=== PATIENT | female | born 1955 | race Caucasian/White ===

== ENCOUNTER → 2021-11-27 01:35 | Outpatient (CLI) | payer MEDICARE, BC, SELFPAY ==
--- NOTE | 2021-11-27 08:41 | DI.MAMMO_ITS ---
Exam(s) MAMMO SCREENING EXAM: MAMMO SCREENING CLINICAL HISTORY: screening,Z12.39. TECHNIQUE: Bilateral full field digital CC and MLO mammographic images were obtained with 3D tomosyn thesis and utilizing computer aided detection (CAD). COMPARISON: Prior mammograms were reviewed, the most recent being 2015. FINDINGS: There has been no significant change in the appearance and distribution of the fibroglandular tissue. Asymmetric areas of tissue in the lateral aspect of the left breast are unchanged from prior mammogra ms dating back to 2012 and therefore benign. Also asymmetric tissue anteriorly in the right breast i s unchanged from prior studies. There are no new spiculated masses nor malignant appearing microcalcification groups. There is no significant architectural distortion nor skin thickening-retraction. IMPRESSION: No radiographic evidence of malignancy. BI-RADS Category 1 - Negative Breast Density - Category B - Scattered areas of fibroglandular density Breast density Category C or D implies that the patient has dense breast tissue. Dense breast tissue can make it harder to find cancer on a mammogram. Dense breast tissue is also associated with an incr eased risk of breast cancer. This information about the result of the mammogram report was provided to the patient to raise their awareness. Use this report when you speak with the patient about their risks for breast cancer, which includes their family history. At that time, you may recommend additional screening tests (Ultrasoun d or MRI) as these tests may add significant information. A negative radiographic report should not delay biopsy if a dominant or clinically suspicious mass is present. Up to ten percent of cancers are not identified on mammography. A negative report may reinforce clinical impression. Adenosis and dense breasts may obscure an underlying neoplasm. False positive reports average 6 to 10%. Patient will receive a letter notifying them of these results.
== END ==
PROVIDERS: PCP Internal Medicine; Visit Provider Internal Medicine
DX: Z12.31 Encounter for screening mammogram for malignant neoplasm of breast (principal)
CPT/HCPCS: 77063; 77067

== ENCOUNTER → 2022-05-05 01:26 | Outpatient (CLI) | payer MEDICARE, BC, SELFPAY ==
--- NOTE | 2022-05-05 07:45 | DI.DEXA_ITS ---
Exam(s) XR DEXA BONE DENSITY W/WO LAQUITA EXAM: XR DEXA BONE DENSITY W/WO LAQUITA CLINICAL HISTORY: screening FOR OSTEOPOROSIS IN POSTMENOPAUSAL WOMAN,Z78.0 TECHNIQUE: COMPARISON: No exams were available for comparison FINDINGS: Lateral Spine Image: Unremarkable. No compression deformities identified. Left hip: Total T-Score: -1.0 Total Z-Score: 0.3 T- and Z-scores: Within normal limits. Lumbar Spine: Total T-Score: -0.8 Total Z-Score: 1.1 T- and Z-scores: Within normal limits. IMPRESSION: No evidence of osteoporosis.
== END ==
PROVIDERS: PCP Nurse Practitioner Family; Visit Provider Nurse Practitioner Family
DX: Z13.820 Encounter for screening for osteoporosis (principal); Z78.0 Asymptomatic menopausal state
CPT/HCPCS: 77080

== ENCOUNTER 2022-05-14 02:20 | Outpatient (CLI) | payer MEDICARE, BC, SELFPAY ==
[2022-05-14 08:57] LABS: Anion Gap 8.8 mmol/L (3-11); BUN 15 mg/dL (7-18); CO2 28.2 mmol/L (21.0-32.0); CREATININE 0.8 mg/dL (0.55-1.02); Calcium 8.9 mg/dL (8.5-10.1); Calculated LDL 152 mg/dL (<100); Chloride 104 mmol/L (98-107); Cholesterol 264 mg/dL (<200); Estimated GFR 81.21 (mL/min/1.73m2); Glucose 103 mg/dL (74-106); HDL Cholesterol 73 mg/dL (40-60); Potassium 3.8 mmol/L (3.5-5.1); Sodium 141 mmol/L (136-145); TSH (W/Ref FT4) 1.22 uIU/mL (0.36-3.74); Triglyceride 198 mg/dL (<150)
[2022-05-15 10:33] LABS: HIV-1/2 Ag & Ab Screen Negative (Negative)
[2022-05-18 10:09] LABS: Hepatitis C Ab w Rflx HCV PCR Negative (Negative)
== END 2022-05-14 02:21 | disposition home or self-care (01) ==
LOC: LBO 02:20
PROVIDERS: PCP Nurse Practitioner Family; Visit Provider Nurse Practitioner Family
DX: E78.5 Hyperlipidemia, unspecified (principal); Z11.59 Encounter for screening for other viral diseases; L65.9 Nonscarring hair loss, unspecified; Z13.1 Encounter for screening for diabetes mellitus; Z11.4 Encounter for screening for human immunodeficiency virus [HIV]
CPT/HCPCS: 36415; 80048; 80061; 86803; 87389; 84443

== ENCOUNTER 2022-07-28 22:39 | Emergency (ER) | payer MEDICARE, BC, SELFPAY ==
[2022-07-28 22:43] VITALS: BP 134/87; PULSE 93; RESP 20; TEMP 36.8; O2SAT 99
--- NOTE | 2022-07-28 22:45 | DI.RAD_ITS ---
Exam(s) XR WRIST LT COMPLETE EXAM: XR WRIST LT COMPLETE CLINICAL HISTORY: distal radius pain, suspect fx. TECHNIQUE: 2D digital imaging was performed. Three views. COMPARISON: CR LEFT WRIST COMPLETE from 12/04/2009 FINDINGS: BONES: There is a comminuted fracture seen extending mainly obliquely through the distal radial metad iaphysis. There is displacement laterally and mild angulation. There is a small smoothly marginated bony density seen adjacent to the ulnar styloid consistent with an old fracture.. No bony destructi ve lesion is seen. JOINTS: The carpal bones are normally aligned. There are severe degenerative changes at the 1st carpa l metacarpal joint. SOFT TISSUE: Normal. IMPRESSION: Distal radial fracture. DATA REPOSITORY: RADIATION DOSE DELIVERED:
[2022-07-28] MEDS: MORPHine 4 MG/ML SYR IM (23:23)
--- NOTE | 2022-07-28 23:45 | DI.VRAD_ITS ---
PROCEDURE INFORMATION: Exam: XR Left Wrist Exam date and time: 07/28/2022 11:05 PM Age: 67 years old Clinical indication: Injury or trauma; Fall; Fracture, traumatic injury; Closed fracture; Wrist; Left; Injury details: Distal radius pain, suspect FX TECHNIQUE: Imaging protocol: Radiologic exam of the left wrist. Views: 3 or more views. COMPARISON: No relevant prior studies available. FINDINGS: Bones/joints: There is a comminuted fracture through the distal radial metaphysis and distal radial shaft with mild radial and proximal displacement of the major distal fragments relative to the radial shaft. No definite fracture extension through the distal radial articular surface is seen. There is a well corticated ossicle adjacent to the distal ulna with an appearance suggesting an old ulnar styloid process fracture. There is severe degenerative change at the 1st carpometacarpal joint at the base of the thumb. Soft tissues: There is soft tissue swelling through the distal forearm in the region of the fracture. IMPRESSION: 1. Comminuted acute fracture through the distal left radial shaft and distal left radial metaphysis, as above. 2. Severe degenerative change at the 1st carpometacarpal joint at the base of the left thumb. Dictated and Authenticated by: Del Mitchell MD. Ordering:YOSVANY Andrews MD
--- NOTE | 2022-07-28 23:52 | ED.GENADUL_ITS ---
Discharge Plan Disposition Patient Disposition: Home Condition: Good Discharge Details Clinical Impression: Closed left radial fracture Primary Care Provider: Natty Plaza ED Provider: Darryl Duran Home Meds and New Rx's Prescriptions: No Action cholecalciferol (vitamin D3) 75 mcg (3,000 unit) tablet 75 mcg PO DAILY Ocuvite [facility] 50 mg-15 unit- 4.5 mg-2.5 mg tablet,chewable 2 tab PO DAILY multivitamin 1 EACH tablet 1 ea PO DAILY omeprazole magnesium [Prilosec OTC] 20 MG tablet,delayed release (DR/EC) 20 mg PO PRN Discharge Instructions Instructions: Arm Fracture in Adults (ED) Additional Instructions: At this time you have a notable fracture in your left distal radius. Please leave the splint on. Please follow-up closely with the psychiatric specialist. They will contact you for an appointment time. If you do notice any change in color of your fingers, numbness or tingling, please loosen the splint and return immediately for reassessment . Please take Tylenol and Motrin as needed for pain. If you notice any worsening of your symptoms, or any new symptoms such as vomiting, diarrhea, fever, chills, shortness of breath, chest pain, numbness, weakness, or fainting , please return immediately to the emergency department for reevaluation. Please follow up with your primary care provider as soon as possible for reassessment and reevaluation. As always, it was a pleasure participating in your medical care today. Referrals: Natty Plaza NP [Primary Care Provider] - Jack Alston MD [ [facility] STAFF PHYSICIAN] - Hansel Wagner MD [ [facility] STAFF PHYSICIAN] - Medical Decision Making 67-year-old female with no significant past medical history presents today for left wrist pain. She is right-hand dominant. About 30 minutes prior to arrival the patient was walking when she slipped and landed on her left wrist, she did also hit her head. She denies any loss of consciousness. She is not on any blood thinners. Pain is located in her left wrist. No significant pain anywhere else. She denies any numbness or tingling. Pain is made worse with movement of her wrist. Improved by nothing. She denies any previous injury to those areas. Physical exam demonstrates deformity in the distal radius, however the patient demonstrates excellent editorial assistant strength, normal sensation of all fingers, normal movement of the thumb without any focal weakness. X-ray shows evidence of comminuted acute fracture of the distal left radius shaft and distal left radius metaphysis. Hematoma block was placed. Repositioning was attempted, however it immediately transitions back to its previous state. Mild tension/movement was created and then resplint was placed around this firmly. Patient tolerated this well. Will recommend orthopedic follow-up for reassessment and evaluation potential further intervention. Patient tolerated splinting procedure well otherwise. At time of discharge patient was reassessed and still demonstrated e xcellent capillary refill, sensation, and movement of the fingers. I have extensively reviewed the treatment plan and discharge instructions with the patient. I have addressed all patient concerns at this time. The patient was made aware of what symptoms to monitor for that would warrant a return to the emergency department. Discussed the plan with the patient, they demonstrate verbal understanding and agreement with our assessment and plan at this time. The documentation in this chart was dictated using [employer] dictation software. Please excuse any dictation errors. FINDINGS: Bones/joints: There is a comminuted fracture through the distal radial metaphysis and distal radial shaft with mild radial and proximal displacement of the major distal fragments relative to the radial shaft. No definite fracture extension through the distal radial articular surface is seen. There is a well corticated ossicle adjacent to the distal ulna with an appearance suggesting an old ulnar styloid process fracture. There is severe degenerative change at the 1st carpometacarpal joint at the base of the thumb. Soft tissues: There is soft tissue swelling through the distal forearm in the region of the fracture. IMPRESSION: 1. Comminuted acute fracture through the distal left radial shaft and distal left radial metaphysis, as above. 2. Severe degenerative change at the 1st carpometacarpal joint at the base of the left thumb. Thank you for allowing us to participate in the care of your patient. Dictated and Authenticated by: Del Mitchell MD [facility] General Date/Time Provider Initiated Documentation: 07/28/22 22:44 . HPI Narrative: 67-year-old female with no significant past medical history presents today for left wrist pain. She is right-hand dominant. About 30 minutes prior to arrival the patient was walking when she slipped and landed on her left wrist, she did also hit her head. She denies any loss of consciousness. She is not on any blood thinners. Pain is located in her left wrist. No significant pain anywhere else. She denies any numbness or tingling. Pain is made worse with movement of her wrist. Improved by nothing. She denies any previous injury to those areas. Related Data Home Medications Medication Instructions Recorded Confirmed multivitamin 1 ea PO DAILY 01/03/13 04/30/22 omeprazole magnesium 20 mg 20 mg PO PRN 01/03/13 04/30/22 tablet,delayed release (Prilosec OTC) cholecalciferol (vitamin D3) 75 75 mcg PO DAILY 09/03/21 04/30/22 mcg (3,000 unit) tablet vit C 50 mg-E 15 unit-zinc cit 4.5 2 tab PO DAILY 09/03/21 04/30/22 mg-lutein 2.5 mg-zeaxan chew tablet ([employer]) Allergies Allergy/AdvReac Type Severity Reaction Status Date / Time No Known Allergies Allergy Verified 04/30/22 15:03 General Stated Complaint: Orthopedic VIRGIE: 3 Review of Systems All systems reviewed & are unremarkable except as noted in HPI and below PFSH All Active Problems Closed left radial fracture (Acute) Hyperlipidemia, unspecified (Acute) Pre-hypertension (Chronic ~09/03/21) Medical History Closed fracture of metatarsal bone of left foot continue use of CAM boot. Report dated 12/25/16 COVID (~03/02/22) Ovarian cyst Postmenopausal Postmenopausal bleeding (04/27/12) Urinary, incontinence, stress female (09/30/11) Surgical History Status post right oophorectomy (~05/06/12) Laparoscopic w/ salpingectomy; Dr. 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[employer]) Do you think of yourself as: straight/heterosexual Current gender identity: female What is your relationship status?: How often do you talk on the phone with friends or family?: three or more times per week How often do you get together with friends or relatives?: once per week Panel score (0-1 are the most socially isolated patients): 2 What type of physical activity do you participate in: walking Duration: 15-30 minutes/day Frequency: 3-4 times per week Isela/Alevism: Pentecostalism Special isela needs: No Seatbelt use: always Helmet use: Yes Drive intox or ride w/intox caterpillar driver: No Exam Narrative Exam Narrative: 1.Const: Well-nourished, Well-developed, appearing stated age 2.Eyes: PERRL, no conjunctival injection, and symmetrical lids. 3.ENT: Atraumatic external nose and ears. Moist MM. Neck: Symmetric, trachea midline, No thyromegaly. There is no evidence of raccoon eyes, jc sign, CSF rhinorrhea, mastoid tenderness, cranial crepitus, hemotympanum, exophthalmos, or hyphema. Patient demonstrates intact dentition with no signs of tooth avulsion or fracture, no signs of jaw deformity, no evidence of a LeFort's fracture, with an intact palate, nose and orbital region. There is no evidence of a nasal septal hematoma. No proptosis. Jaw closes symmetrically. Airway is clear. Small goose egg noted on the patient's right posterior occiput 4.CVS: +S1/S2, No murmurs or gallops. Peripheral pulses 2+ and equal in all extremities. Brisk capillary refill in all extremities. 5.RESP: Unlabored respiratory effort. Clear to auscultation bilaterally. No wheezes rales or rhonchi 6.GI: Soft, Nontender/Nondistended, No hepatosplenomegaly. No guarding or rebound. 7.MSK: Left wrist demonstrates mild deformity and swelling at the distal radius. Tenderness is present in this area. Patient demonstrates surprisingly good editorial assistant strength still, normal sensation in the distal fingers and thumb, brisk capillary refill. No other evidence of trauma on palpation evaluation of the other osseous sites. 8.Skin: Warm, Dry. No rashes or lesions. 9.Neuro: apron trimmer II-XII grossly intact. Sensation grossly intact, no focal neurologic deficits. 10.Psych: (AAO) x3. Appropriate mood and affect Course Vital Signs Vital signs: Vital Signs Temperature 36.8 C 07/28/22 22:43 Pulse 93 H 07/28/22 22:43 Respiratory Rate 20 07/28/22 22:43 Blood Pressure 134/87 07/28/22 22:43 Pulse Oximetry 99 07/28/22 22:43 Temperature 36.8 C 07/28/22 22:43 Temperature Source Oral 07/28/22 22:43 Pulse 93 H 07/28/22 22:43 Respiratory Rate 20 07/28/22 22:43 Blood Pressure 134/87 07/28/22 22:43 Blood Pressure Position Sitting 07/28/22 22:43 Pulse Oximetry 99 07/28/22 22:43 Oxygen Delivery Method Room Air 07/28/22 22:43 Oxygen Flow Rate 0 07/28/22 22:43 Pain Level 10 07/28/22 23:23
[2022-07-29 00:14] VITALS: BP 141/89; PULSE 91; O2SAT 98
== END 2022-07-29 00:52 | disposition home or self-care (01) ==
PROVIDERS: Emergency Provider Student in an Organized Health Care Education/Training Program; PCP Nurse Practitioner Family
DX: S52.592A Other fractures of lower end of left radius, initial encounter for closed fracture (principal); W00.0XXA Fall on same level due to ice and snow, initial encounter
CPT/HCPCS: 96372; 99284; 73110; J2270

== ENCOUNTER 2022-07-30 09:47 | Day surgery (SDC) | payer MEDICARE, BC, SELFPAY ==
[2022-07-30] VITALS (9 sets, daily range): BP systolic 109–176; BP diastolic 63–97; PULSE 63–80; RESP 16–20; TEMP 36.6–37.1; O2SAT 94–98; BMI 25.4
--- NOTE | 2022-07-30 06:31 | W.ANESPRE ---
General Info Date of Service Date Performed: 07/30/22 Height: 5 ft 3 in Weight: 65 kg Body Mass Index (BMI): 25.4 Surgical Procedure: Operation Date: 07/30/22 11:10 Proposed Procedure Side Surgeon p Wrist ORIF Distal Radius Left Jack Alston MD Meds Allergies and Home Medications Allergies Allergy/AdvReac Type Severity Reaction Status Date / Time No Known Allergies Allergy Verified 04/30/22 15:03 Home Medication Medication Instructions Recorded multivitamin 1 ea PO DAILY 01/03/13 omeprazole magnesium 20 mg 20 mg PO PRN 01/03/13 tablet,delayed release (Prilosec OTC) cholecalciferol (vitamin D3) 75 75 mcg PO DAILY 09/03/21 mcg (3,000 unit) tablet vit C 50 mg-E 15 unit-zinc cit 4.5 2 tab PO DAILY 09/03/21 mg-lutein 2.5 mg-zeaxan chew tablet ([facility]) Current Visit Medications: Current Medications Generic Name Dose Route Start Last Admin Trade Name Jose Davidq PRN Reason Stop Dose Admin Ringer's Solution 1,000 mls @ 30 mls/hr 07/30/22 06:00 IV 08/28/22 23:59 INFUSION SANTI Cefazolin Sodium/Dextrose 2 gm in 50 mls @ 100 mls/hr 07/30/22 06:00 Ancef Duplex IVPB 07/30/22 16:00 PREOP SANTI IV Miscellaneous Supplies 1 each 07/30/22 06:00 Iv Access IV 08/28/22 23:59 DIRECTED SANTI Sodium Chloride 0 ml 07/30/22 06:00 Normal Saline Flush 10 Ml Syr IV 08/28/22 23:59 PRN PRN Sodium Chloride 0 ml 07/30/22 06:00 Normal Saline 10 Ml Vial IJ 08/28/22 23:59 DIRECTED PRN Sterile Water 0 ml 07/30/22 06:00 Water,Injection,Sterile 10 Ml Vial IJ 08/28/22 23:59 DIRECTED PRN PFSH Active Problems Active Problems: Problem Status Onset Code Pre-hypertension ~09/03/21 R03.0 Hyperlipidemia, unspecified E78.5 Closed left radial fracture S52.92XA Medical History Medical History (Updated 07/30/22 @ 07:58 by Jack Alston MD) Acid reflux Closed fracture of metatarsal bone of left foot continue use of CAM boot. Report dated 12/25/16 COVID (~03/02/22) Ovarian cyst Postmenopausal Postmenopausal bleeding (04/27/12) Urinary, incontinence, stress female (09/30/11) Surgical History Surgical History (Updated 07/29/22 @ 10:10 by Angle Forbes RN) History of appendectomy History of cholecystectomy History of tubal ligation Status post right oophorectomy (~05/06/12) Laparoscopic w/ salpingectomy; Dr. Christensen Tobacco Smoking/Tobacco Use Status: Never Passive smoking exposure: No Alcohol Alcohol Intake: current Alcohol intake frequency: 3 or more drinks per day Alcohol type: wine Substance Use Substance use: Never Substance use type: does not use Vital Signs and Lab Results Vital Signs Most Recent Vital Signs in EMR: Temp Pulse Resp BP Pulse Ox 37.1 C 76 16 157/94 H 98 07/30/22 10:02 07/30/22 10:02 07/30/22 10:02 07/30/22 10:02 07/30/22 10:02 Lab Results Blood Type / Crossmatch: No Data to Display Complete Blood Count: No Data to Display Complete Metabolic Panel: No Data to Display Liver Function Panel: No Data to Display Coagulation Panel: No Data to Display Cardiac Panel: No Data to Display Arterial Blood Gas: No Data to Display Venous Blood Gas: No Data to Display Pancreas Panel: No Data to Display Thyroid Panel: No Data to Display Infectious Disease: No Data to Display Blood Cultures: No Data to Display Toxicology Panel: No Data to Display Anesthesia Assessment and Plan Anesthesia History Personal History: No History of Anesthesia Complications Family History: No Family History of Anesthesia Complications Exercise Tolerance Exercise Tolerance: Metabolic Equivalents>4 Cardiac & Pulmonary Exam Cardiac Exam: Normal S1/S2 Heart Sounds Pulmonary Exam: Clear Bilateral Breath Sounds Implantable Cardiac Device Does patient have a Pacemaker or an ICD?: No Airway Exam Known Difficult Airway: No Mallampati Class: 3 Mouth Opening: Normal (> 3cm) Thyromental Distance: Less than 3 cm Neck Range of Motion: Full ROM Neck Circumference: Normal Teeth Condition: Normal Dentition ASA Classification ASA Score: ASA 2 Emergency Case?: No NPO Status NPO Status: NPO Clears >2 hours, Solids >8 hours Anesthesia Plan Resuscitation Status: Full Code Anesthesia Technique: General Anesthesia Airway Planned: LMA Monitors Used: Standard Monitors Preoperative Comments:: 67 yo female for ORIF distal radius fracture. Sig PMHx: HTN (pre, no meds), GERD (omeprazole, not every day), never smoker, daily EtOH. Plan: discussed risks, benifits GA with brachial plexus block (nerve injury, block failure, local going places we don't want it, other). will proceed GA LMA, brachial plexus block.
[2022-07-30] MEDS: Lactated Ringers 1,000 ML 30 ML IV (10:20)
--- NOTE | 2022-07-30 10:58 | W.PM.HP.N ---
Date of service: 07/30/22 Time of Service: 10:31 Assessment and Plan Assessment and plan (1) Closed left radial fracture: Status: Acute Assessment and plan: 67 year old right hand dominant female presents today 2 days status post left distal radius fracture on 07/28/22. Patient reports that injury occurred when she had a slip and fall onto her outstretched left hand. She reports that she has been using tylenol and ibuprofen for pain relief. She reports that wrist feels a little achey today. Denies any numbness or tingling. Review of systems positive for easy bruising. History of GERD. 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 Exam of the left wrist shows sugartong splint in place. Fingers are moderately swollen. Patient reports ring present on her left ring finger although it is not visible because it is completely covered by the splint. Wiggles fingers. Sensation intact to light touch. Breathing comfortably on room air. No coughs or wheezes. 2+ right radial pulse. Regular rate and rhythm. Decision to proceed with surgery on 07/30/22 Left distal radius ORIF Patient was counseled regarding pain management, expected postoperative course, and recovery timeline. All questions were answered. Informed consent was obtained. Agree and understand treatment plan. Follow up 10-14 days after surgery. Will call if any changes or concerns. Breathing comfortably on room air.? No coughs or wheezes.? 2+ Left radial pulse.? Regular rate and rhythm. Plan for Left ring finger RING removal in OR [facility] All Active Problems Pre-hypertension (Chronic ~09/03/21) Hyperlipidemia, unspecified (Acute) Closed left radial fracture (Acute 07/29/22) Medical History Acid reflux Closed fracture of metatarsal bone of left foot continue use of CAM boot. Report dated 12/25/16 COVID (~03/02/22) Ovarian cyst Postmenopausal Postmenopausal bleeding (04/27/12) Urinary, incontinence, stress female (09/30/11) Surgical History History of appendectomy History of cholecystectomy History of tubal ligation Status post right oophorectomy (~05/06/12) Laparoscopic w/ salpingectomy; Dr. 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[employer]) Do you think of yourself as: straight/heterosexual Current gender identity: female What is your relationship status?: How often do you talk on the phone with friends or family?: three or more times per week How often do you get together with friends or relatives?: once per week Panel score (0-1 are the most socially isolated patients): 2 What type of physical activity do you participate in: walking Duration: 15-30 minutes/day Frequency: 3-4 times per week Isela/Mandaen: Taoism Special isela needs: No Seatbelt use: always Helmet use: Yes Drive intox or ride w/intox vacuum truck driver: No Do you feel safe at home: Yes Do you feel safe in your relationship?: Yes Meds Allergies and Home Medications Allergies Allergy/AdvReac Type Severity Reaction Status Date / Time No Known Allergies Allergy Verified 04/30/22 15:03 Home Medications Medication Instructions Recorded Confirmed Type multivitamin 1 ea PO DAILY 01/03/13 07/30/22 History omeprazole magnesium 20 mg 20 mg PO PRN 01/03/13 07/30/22 History tablet,delayed release (Prilosec OTC) cholecalciferol (vitamin D3) 75 75 mcg PO DAILY 09/03/21 07/30/22 History mcg (3,000 unit) tablet vit C 50 mg-E 15 unit-zinc cit 4.5 2 tab PO DAILY 09/03/21 07/30/22 History mg-lutein 2.5 mg-zeaxan chew tablet ([facility]) Time Spent Time spent with Patient: <40 minutes Time was spent: preparing to see the patient(eg.review tests), obtaining and/or reviewing separately otained hiistory, ordering medications,tests, procedures, referring, communicating with other health primary care md and counseling the patient
--- NOTE | 2022-07-30 11:04 | PDOC.DSDIS_ITS ---
Date of service: 07/30/22 Time of Service: 13:46 Discharge Plan Disposition Patient Disposition: Home Discharge Details Reason For Visit: FX WRIST Attending Provider: Jack Alston Primary Care Provider: Natty Plaza Home Meds and New Rx's Prescriptions: New naproxen 250 mg tablet 250 - 500 mg PO BID PRNQty: 40 0RF Rx Instructions: take with a meal oxycodone 5 mg tablet 5 - 10 mg PO Q4H MDD 30 mg PRN (Reason: moderate to severe pain) Qty: 18 0RF Continued cholecalciferol (vitamin D3) 75 mcg (3,000 unit) tablet 75 mcg PO DAILY Ocuvite Eye Health 50 mg-15 unit- 4.5 mg-2.5 mg tablet,chewable 2 tab PO DAILY multivitamin 1 EACH tablet 1 ea PO DAILY omeprazole magnesium [Prilosec OTC] 20 MG tablet,delayed release (DR/EC) 20 mg PO PRN Discharge Instructions Additional Instructions: Surgery: Left distal radius ORIF Activity: Nonweightbearing left wrist. Recommend elevation to minimize swelling and discomfort. Encourage range of motion/wiggling all fingers and thumb to prevent stiffness and increase circulation. Prescriptions: Naproxen 250 mg take 1-2 every 12 hours with a meal as needed for moderate pain Oxycodone 5 mg take 1-2 every 4-6 hours as needed for severe pain You may use [id number] Tylenol (acetaminophen) as needed for mild pain. These pain medications may be taken all at once or in different combinations as needed. Also, recommend Colace (docusate) as a stool softener as surgery and pain medicine cause constipation. You may try [id number] diphenhydramine (Benadryl) 25-50 mg nightly as a sleep aid Dressings: Leave splint and dressing in place until follow-up. Keep clean and dry at all times. You may adjust/loosen Cliff bandage to accommodate swe lling/comfort. Follow-up: 10-[address] Alston You may take off the leg compression stockings this evening at home. You may also leave them on a few days longer if you have a history of leg swelling or edema. Let us know right away if you develop any redness, drainage, fevers, chest pain, or trouble breathing. Do not drink alcohol or drive for at least 24 hours after anesthesia. Please call the office during business hours with any questions or concerns. Discharge Orders Discharge Orders: Discharge Order (Routine); Ordered 07/30/22 Ordered By: Jack Alston DS: Diagnosis Discharge Diagnosis (1) Closed left radial fracture: Status: Acute
--- NOTE | 2022-07-30 11:06 | ROE_ITS ---
Date of service: 07/30/22 Time of Service: 11:06 Operative Note Operative Note DATE OF PROCEDURE: 07/30/22 PRE-OP DIAGNOSIS: Right distal radius extra-articular fracture POST-OP DIAGNOSIS: same PROCEDURE: Right distal radius, extra-articular, ORIF, CPT #34980 SURGEON: Jack Alston GROUP DYNAMICS INSTRUCTOR: Angelika Triplett ANESTHESIA TYPE: Local By Surgeon, General LMA/ETT and Primary Nerve Block Refer to Anesthesia Record ESTIMATED BLOOD LOSS: 10 TOURNIQUET TIME: 0 COMPLICATIONS: None Patient was transported to: PACU Patient's condition: stable Indications: Please see complete medical record for details. Procedure Description: In the operating room, general anesthesia was induced. The patient was positioned supine on the operating room table. All bony prominences were well- padded. Preoperative antibiotics were administered. The right wrist was prepped and draped in the usual sterile fashion. The correct patient, procedure, and side of the procedure were all verified prior to incision. The radial artery was palpable at all compartments were soft and compressible. There was remarkably little swelling. The modified volar Primitivo volar approach was taken protected and maintaining the radial artery radial and FCR ulnar and working through the sheath, appropriate ligating branches of the radial artery for hemostasis, and then sweeping mobilizing the pronator quadratus from radial to ulnar exposing the fracture site. Exposure was extended as needed proximally and distally. Long oblique fracture exposed, reduced with bone clamps, and provisionally held in place while a long and narrow distal radius plate was centered in appropriate position. Slightly challenging given diminutive bone anatomy and really had to position between the radial and ulnar cortex and slightly more distal than usual to accommodate the plate without overhang. Compressed to the bone with a proximal 2.7 mm bicortical cortex screw. Secured distally with the plate held firmly against the bone with multiple 2.4 mm locking screws. Additional proximal 2.7 m compression, 2.4 mm compression, and lastly most approximately 2.5 mm locking screws placed. Remaining locking screw holes filled. Stable reduction with appropriate alignment and hardware placement. Slight mobility at a radial comminuted segment. Otherwise stable construct. Thoroughly irrigated with normal saline. Hemostasis appropriate. Subcutaneous tissue closed with 2-0 Monocryl buried interrupted. Skin closed with 3-0 Monocryl running subcutaneous. Steri-Strips applied followed by gauze, sterile soft roll and placed into a plaster volar splint. The patient awoke from anesthesia without complication and was transferred to the recovery room in a stable condition.
[2022-07-30] MEDS: ceFAZolin 2 GM/50 ML BAG IVPB (11:20)
--- NOTE | 2022-07-30 11:32 | W.ANESNERVE ---
Nerve Block Single Injection Procedure Date and Time Date Performed: 07/30/22 Procedure Start: 11:00 Location Where Procedure Performed Procedure Location: Day Surgery Unit Reason Performed: Postoperative Analgesia Requesting Provider: Jack Alston Timeout Performed Timeout Performed: Yes Monitoring Used ECG, Blood Pressure and SpO2 Sterility Sterility: Hand Hygiene Sedation Given During Procedure Sedation Given (Indicate Dose Given): Versed IV Dose:: 2 mg Patient Mental Status Patient Mental Status: Awake Nerve Block 1st Nerve Block: Laterality: Left Block Type: Axillary Ultrasound Image Saved?: Yes Needle / Catheter Used: 100mm SonoPlex II Local Anesthetic Bolus (Indicate Dose Given): Lidocaine used for local infiltration of skin, Bupivacaine 0.5% Dose:: 15 mL and Exparel Dose:: 10 mL Additives (Indicate Dose Given): None Ultrasound: Sterile probe cover and gel used Nerve Stimulator: Supplement to Ultrasound use and Other (intermittent twitch at 0.5, needle repositioned to loss of twitch prior to injection. ) Paresthesia: None Procedure Tolerated: No Complications and Other (inadvertent ax artery puncture. ) Procedure Outcome: Successful Performed By: Yosef Ludwig
[2022-07-30] MEDS: Bupivacaine 0.25% Pres-Free W/EPI 30 ML VIAL (12:00)
--- NOTE | 2022-07-30 13:05 | DI.RAD_ITS ---
Exam(s) XR WRIST LT LIMITED EXAM: XR WRIST LT LIMITED CLINICAL HISTORY: LEFT DISTAL RADIUS FRACTURE. TECHNIQUE: 2D and realtime digital imaging was performed. COMPARISON: No exams were available for comparison FINDINGS: Hard copy images show placement of a volar fixation plate along the distal radius. Please see procedure note for details. Fluoro time: 16.3seconds RADIATION DOSE DELIVERED: brian Saini=0.27 mGy
--- NOTE | 2022-07-30 14:12 | W.ANESPOSTOP ---
Postoperative Evaluation Date, Time and Location Date Performed: 07/30/22 Time Performed: 14:12 Patient Location: PACU Vital Signs Most Recent Imported Vital Signs: Most Recent Vital Signs Temp Pulse Resp BP Pulse Ox 36.6 C 65 19 109/67 94 07/30/22 13:57 07/30/22 13:57 07/30/22 13:57 07/30/22 13:57 07/30/22 13:57 Pain Score Most Recent Pain Score: Most Recent Pain Score Pain Level 0 07/30/22 13:57 Assessment Mental Status: Awake (Alert & Oriented to Patient Baseline) Airway and Respiratory Function: Patent airway with normal (patient baseline) respiratory exam Cardiovascular Function: Hemodynamically Stable Hydration Status: Adequately Hydrated Nausea & Vomiting: No Nausea or Vomiting Pain: Pain is tolerable per patient Peripheral Nerve Block: Regional nerve block not resolved at time of post operative discharge
== END 2022-07-30 15:17 | disposition home or self-care (01) ==
PROVIDERS: PCP Nurse Practitioner Family; Visit Provider Student in an Organized Health Care Education/Training Program
PROC: (CPT 25607; principal; 2022-07-30 11:00)
DX: S52.551A Other extraarticular fracture of lower end of right radius, initial encounter for closed fracture (principal); X58.XXXA Exposure to other specified factors, initial encounter
CPT/HCPCS: 25607; 01830; 76942; 73100; J0131; J0690; J1100; J1885; J2250; J2405; J2704

== ENCOUNTER 2022-08-12 08:32 | Outpatient (CLI) | payer MEDICARE, BC, SELFPAY ==
--- NOTE | 2022-08-12 08:15 | DI.RAD_ITS ---
Exam(s) XR WRIST LT LIMITED EXAM: XR WRIST LT LIMITED CLINICAL HISTORY: f/u ORIF. TECHNIQUE: 2D digital imaging was performed. Two images were obtained. PA and lateral views were ob tained. COMPARISON: CR,XR XR WRIST LT COMPLETE from 07/28/2022 XA XR WRIST LT LIMITED from 07/30/2022 FINDINGS: BONES: There are stable post operative changes present. No new fracture or dislocation. There is a o ld well corticated osseous density at the tip of the ulnar styloid process. JOINTS: The joint spaces are well maintained. Degenerative changes are seen at the 1st CMC joint german racterized by joint space narrowing and bony hypertrophy. SOFT TISSUE: Normal. IMPRESSION: Stable postoperative changes. DATA REPOSITORY: RADIATION DOSE DELIVERED:
== END 2022-08-12 08:33 | disposition home or self-care (01) ==
LOC: DIORS 08:33
PROVIDERS: PCP Nurse Practitioner Family; Referring Provider Nurse Practitioner Family; Visit Provider Student in an Organized Health Care Education/Training Program
DX: S52.92XA Unspecified fracture of left forearm, initial encounter for closed fracture (principal)
CPT/HCPCS: 73100

== ENCOUNTER 2022-09-09 09:41 | Outpatient (CLI) | payer MEDICARE, BC, SELFPAY ==
--- NOTE | 2022-09-09 08:15 | DI.RAD_ITS ---
Exam(s) XR WRIST LT LIMITED EXAM: XR WRIST LT LIMITED CLINICAL HISTORY: wrist fx f/u. TECHNIQUE: 2D digital imaging was performed of the left wrist. Two images were obtained. PA and la teral views were obtained. COMPARISON: CR XR WRIST LT LIMITED from 08/12/2022 FINDINGS: BONES: There is again seen a sideplate and screws transfixing the distal left radial fracture. There has been no change in alignment of the orthopedic hardware fracture components. There is a well cor ticated osseous density seen at the ulnar styloid process which is unchanged. No bony destructive le maria r is seen. JOINTS: The carpal bones are normally aligned. There are marked degenerative changes seen at the 1st CMC joint characterized by joint space narrowing and bony hypertrophy. SOFT TISSUE: Normal. IMPRESSION: Stable distal left radial fracture. DATA REPOSITORY: RADIATION DOSE DELIVERED:
== END 2022-09-09 09:42 | disposition home or self-care (01) ==
LOC: DIORS 09:42
PROVIDERS: PCP Nurse Practitioner Family; Referring Provider Nurse Practitioner Family; Visit Provider Student in an Organized Health Care Education/Training Program
DX: S52.592D Other fractures of lower end of left radius, subsequent encounter for closed fracture with routine healing (principal); X58.XXXD Exposure to other specified factors, subsequent encounter
CPT/HCPCS: 73100

== ENCOUNTER 2022-09-18 00:43 | Outpatient (CLI) | payer MEDICARE, BC, SELFPAY ==
--- NOTE | 2022-09-18 08:35 | DI.RAD_ITS ---
Exam(s) XR ANKLE LT COMPLETE EXAM: XR ANKLE LT COMPLETE CLINICAL HISTORY: lt ankle pain, ? fx, m25.572 TECHNIQUE: 2D digital imaging was performed. Three views. COMPARISON: No exams were available for comparison FINDINGS: BONES: No acute fracture is present. No bony destructive lesion is seen. JOINTS:The ankle mortise is normally aligned. SOFT TISSUE: Swelling around the malleoli. IMPRESSION: Soft tissue swelling. No evidence of fracture. DATA REPOSITORY: RADIATION DOSE DELIVERED:
== END 2022-09-18 01:03 ==
LOC: DI 00:44
PROVIDERS: PCP Nurse Practitioner Family; Visit Provider Nurse Practitioner Family
DX: M25.572 Pain in left ankle and joints of left foot (principal)
CPT/HCPCS: 73610

== ENCOUNTER 2022-10-14 08:29 | Outpatient (CLI) | payer MEDICARE, BC, SELFPAY ==
--- NOTE | 2022-10-14 08:15 | DI.RAD_ITS ---
Exam(s) XR WRIST LT LIMITED EXAM: XR WRIST LT LIMITED CLINICAL HISTORY: F/U FRACTURE. TECHNIQUE: 2D digital imaging was performed. COMPARISON: No exams were available for comparison FINDINGS: Two views: Again noted is a volar fixation plate across a healing fracture site in distal radius. Appearance is satisfactory-stable further healing. No displacement. No hardware loosening nor radiographic evide nce of osteomyelitis. Fractured tip of the ulnar styloid again noted. IMPRESSION: Satisfactory appearance DATA REPOSITORY: RADIATION DOSE DELIVERED:
== END 2022-10-14 08:30 | disposition home or self-care (01) ==
LOC: DIORS 08:29
PROVIDERS: PCP Nurse Practitioner Family; Referring Provider Nurse Practitioner Family; Visit Provider Student in an Organized Health Care Education/Training Program
DX: S52.592D Other fractures of lower end of left radius, subsequent encounter for closed fracture with routine healing (principal); X58.XXXD Exposure to other specified factors, subsequent encounter
CPT/HCPCS: 73100

== ENCOUNTER → 2023-07-05 01:40 | Outpatient (CLI) | payer MEDICARE, BC, SELFPAY ==
--- NOTE | 2023-07-05 07:45 | DI.MAMMO_ITS ---
Exam(s) MAMMO SCREENING EXAM: MAMMO SCREENING CLINICAL HISTORY: screening,Z12.39 TECHNIQUE: Mammograms were interpreted according to the usual protocol including computer analysis w Hedgeable CAD system, tomosynthesis and C-view imaging. COMPARISON: 2015 through 2021 FINDINGS: The breasts are composed of mainly fatty density , Breast Density category A. No suspicious masses or suspicious microcalcifications are seen. No skin thickening or abnormal axillary lymph nodes are seen. There has been no significant change from prior exams. IMPRESSION: BI-RADS Category 1, Negative mammogram Yearly screening mammography is recommended. Breast Density - Category A, fatty density. A negative radiographic report should not delay biopsy if a dominant or clinically suspicious mass is present. Up to ten percent of cancers are not identified on mammography. A negative report may reinforce clinical impression. Adenosis and dense breasts may obscure an underlying neoplasm. False positive reports average 6 to 10%. Patient will receive a letter notifying them of these results.
== END ==
PROVIDERS: PCP Nurse Practitioner Family; Visit Provider Nurse Practitioner
DX: Z12.31 Encounter for screening mammogram for malignant neoplasm of breast (principal)
CPT/HCPCS: 77063; 77067

== ENCOUNTER 2024-03-29 16:24 | Outpatient (CLI) | payer MEDICARE, BC, SELFPAY ==
--- NOTE | 2024-03-29 16:15 | RT.EKG_ITS ---
APPROVED REPORT Exam: Resting ECG Reason for Exam: pre-op Patient Location: O HR:62 bpm ECG Measurements Heart Rate 62 AXIS MN 202 P 31 QRSd 108 QRS -1 QT 410 T 19 QTc 417 Conclusion Sinus rhythm...normal P axis, V-rate 50- 99 Low voltage, precordial leads...precordial leads <1.0mV Otherwise normal ECG
== END 2024-03-29 16:25 | disposition home or self-care (01) ==
LOC: DI.KIM 16:25
PROVIDERS: PCP Nurse Practitioner Family; Visit Provider Nurse Practitioner
DX: Z01.818 Encounter for other preprocedural examination (principal)
CPT/HCPCS: 93010

== ENCOUNTER 2024-04-11 03:12 | Outpatient (CLI) | payer MEDICARE, BC, SELFPAY ==
[2024-04-11 08:38] LABS: Abs Immature Grans 0.01 10^3/uL (0.0-0.06); Absolute Basophil Count 0.04 10^3/uL (0.0-0.2); Absolute Lymphocyte Count 1.48 10^3/uL (1.2-3.4); Absolute Monocyte Count 0.45 10^3/uL (0.1-0.8); Absolute Neutrophil Count 2.38 10^3/uL (1.2-6.7); Basophils % 0.9 %; Eosinophils % 4.4 %; HCT 39.7 % (36.0-46.0); HGB 12.9 g/dL (11.2-15.7); Immature Grans % 0.2 %; Lymphocytes % 32.5 %; MCH 28.6 pg (27.0-33.0); MCHC 32.5 % (32.0-36.0); MCV 88 fL (80-95); MPV 10.5 fL (8.0-11.0); Monocytes % 9.9 %; Neutrophils % 52.1 %; Platelet Count 199 10^3/uL (130-400); RBC 4.51 10^6/uL (3.93-5.22); RDW 13.8 % (11.7-14.6); RDW-SD 44.8 fL; WBC 4.56 10^3/uL (4.4-10.8)
[2024-04-11 08:56] LABS: ALT 27 U/L (14-59); AST 17 U/L (15-37); Albumin 3.7 g/dL (3.4-5.0); Alkaline Phosphatase 67 U/L (46-116); Anion Gap 10.1 mmol/L (3-11); BUN 11 mg/dL (7-18); Bilirubin, Total 0.37 mg/dL (0.2-1.0); CO2 27.9 mmol/L (21.0-32.0); CREATININE 0.8 mg/dL (0.55-1.02); Calcium 8.7 mg/dL (8.5-10.1); Calculated LDL 141 mg/dL (<100); Chloride 107 mmol/L (98-107); Cholesterol 246 mg/dL (<200); Estimated GFR 80.21 (mL/min/1.73m2); Glucose 96 mg/dL (74-106); HDL Cholesterol 89 mg/dL (40-60); Potassium 3.9 mmol/L (3.5-5.1); Sodium 145 mmol/L (136-145); Total Protein 7.3 g/dL (6.4-8.2); Triglyceride 83 mg/dL (<150)
== END 2024-04-11 03:13 | disposition home or self-care (01) ==
LOC: LBO 03:12
PROVIDERS: PCP Nurse Practitioner Family; Referring Provider Nurse Practitioner; Visit Provider Nurse Practitioner
DX: E78.5 Hyperlipidemia, unspecified (principal); R03.0 Elevated blood-pressure reading, without diagnosis of hypertension
CPT/HCPCS: 36415; 80053; 80061; 85025

== ENCOUNTER 2024-07-11 02:28 | Outpatient (CLI) | payer MEDICARE, BC, SELFPAY ==
--- NOTE | 2024-07-11 08:50 | DI.MAMMO_ITS ---
Exam(s) MAMMO SCREENING EXAM: MAMMO SCREENING CLINICAL HISTORY: screening,Z12.39 TECHNIQUE: Bilateral full field digital CC and MLO mammographic images were obtained with 3D tomosyn thesis and utilizing computer aided detection (CAD). COMPARISON: Available for comparison. FINDINGS: Masses/Architectural Distortion: None seen. Microcalcifications: No suspicious pleomorphic-type are seen. Skin Thickening/Nipple Retraction: None. IMPRESSION: 1. No significant interval change with no specific features of malignancy noted. 2. Unless there is more urgent need, screening mammography is recommended, as per [employer] guidelines. BI-RADS Category 1 - Negative Breast Density - Category A - Almost entirely fatty Breast density category C or D implies that the patient has dense breast tissue. Dense breast tissue is very common and is not abnormal but dense breast tissue can make it harder to find cancer on a ma mmogram. Also, dense breast tissue may increase their breast cancer risk. This information about the result of the mammogram report was provided to the patient to raise their awareness. Use this report when you speak with the patient about their risks for breast cancer, which includes their family hist ory. At that time, you may recommend for more screening tests (Ultrasound or MRI) as they might be us eful based on their risk. A negative radiographic report should not delay biopsy if a dominant or clinically suspicious mass is present. Up to ten percent of cancers are not identified on mammography. A negative report may reinforce clinical impression. Adenosis and dense breasts may obscure an underlying neoplasm. False positive reports average 6 to 10%. Patient will receive a letter notifying them of these results.
== END 2024-07-11 02:48 ==
LOC: DI 02:28
PROVIDERS: PCP Nurse Practitioner; Visit Provider Nurse Practitioner
DX: Z12.31 Encounter for screening mammogram for malignant neoplasm of breast (principal); R92.313 Mammographic fatty tissue density, bilateral breasts
CPT/HCPCS: 77063; 77067